=== PATIENT | male | born 1955 | race Caucasian/White ===

== ENCOUNTER 2017-10-10 00:07 | Emergency (ER) | payer OTHER ==
[~2017-10-10] VITALS: Ht 177.8 cm; Wt 68.5 kg
[~2017-10-10 00:07] MED LIST changes: -INVANZ1 GM IV; -XOPENEX0.63 MG/3
[2017-10-10] MEDS ORDERED: XOPENEX0.63 MG/3 (00:25)
[2017-10-10] MEDS ORDERED: INVANZ1 GM IV ×2 (08:07)
== END 2017-10-10 08:19 | disposition home or self-care (01) ==
LOC: ER 00:07
DX: K57.92 Diverticulitis of intestine, part unspecified, without perforation or abscess without bleeding (principal)

== ENCOUNTER → 2017-10-10 | Emergency (ER) | payer OTHER ==
[~2017-10-10] MED LIST: CHOLESTYRAMINE P4 GM PO; IMODIUM A-D2 MG PO; INVANZ1 GM IV; LEVSIN0.125 MG PO; NEURIN SL; NEURONTIN300 MG PO; PERCOCET 5/3251 TAB PO; PREVACID30 MG PO; XOPENEX0.63 MG/3
== END | disposition left against medical advice (07) ==
LOC: ER 16:48
DX: Z53.20 Procedure and treatment not carried out because of patient's decision for unspecified reasons (principal)

== ENCOUNTER 2017-12-07 15:15 | Inpatient (IN) | payer OTHER ==
[~2017-12-07] VITALS: Ht 177.8 cm; Wt 68.0 kg
[~2017-12-07 15:15] MED LIST changes: +INVANZ1 GM IV; +XOPENEX0.63 MG/3
== END 2017-12-15 18:15 | disposition home or self-care (01) | DRG 331 ==
LOC: SURH 12-12 07:31 → O/R 12-12 07:31 → SURH 12-12 10:45
PROVIDERS: Colon & Rectal Surgery
PROC: 0DJD8ZZ Inspection of Lower Intestinal Tract, Via Natural or Artificial Opening Endoscopic (ICD-10-PCS; 2017-12-12)
PROC: 3E0F7GC Introduction of Other Therapeutic Substance into Respiratory Tract, Via Natural or Artificial Opening (ICD-10-PCS; 2017-12-12)
PROC: 0DTE4ZZ Resection of Large Intestine, Percutaneous Endoscopic Approach (ICD-10-PCS; principal; 2017-12-12 10:45)
DX: K57.32 Diverticulitis of large intestine without perforation or abscess without bleeding (principal); J45.20 Mild intermittent asthma, uncomplicated; E80.4 Gilbert syndrome